=== PATIENT | male | born 1950 | race Caucasian/White ===

== ENCOUNTER 2021-03-31 01:52 | Emergency (ER) | payer MEDICARE ==
[~2021-03-31] VITALS: Ht 170.2 cm; Wt 100.0 kg
[2021-03-31 02:24] VITALS: BP 145/65
== END 2021-03-31 03:02 | disposition home or self-care (01) ==
LOC: ER 01:52
DX: T39.1X1A Poisoning by 4-Aminophenol derivatives, accidental (unintentional), initial encounter (principal); R42 Dizziness and giddiness; E11.9 Type 2 diabetes mellitus without complications; Y92.89 Other specified places as the place of occurrence of the external cause
CPT/HCPCS: 99283

== ENCOUNTER 2021-05-10 23:01 | Emergency (ER) | payer MEDICARE ==
[~2021-05-10] VITALS: Ht 170.2 cm; Wt 106.8 kg
[2021-05-11] MEDS ORDERED: bisacodyl 5mg tablet.DR PO ONE (05:15)
[2021-05-11] MEDS ORDERED: BISA-78 PO (05:35)
[2021-05-11] MEDS ORDERED: MAGN296S68 PO (05:35)
--- NOTE | 2021-05-11 06:08 | NUR ---
DR WOOD PERFORMED MANUAL DESIMPACTION. PT THEN GIVEN MINERAL OIL ENEMA. PT WAS ABLE TO HAVE A SUBSTANTIAL BOWEL MOVEMENT.
[2021-05-11 06:17] VITALS: BP 182/114
== END 2021-05-11 06:21 | disposition home or self-care (01) ==
LOC: ER 23:01
DX: K59.00 Constipation, unspecified (principal); E11.9 Type 2 diabetes mellitus without complications; Z79.899 Other long term (current) drug therapy
CPT/HCPCS: 99284